=== PATIENT | female | born 1960 | race Caucasian/White ===

== ENCOUNTER 2018-03-12 08:33 | Outpatient (CLI) | payer OTHER ==
[~2018-03-12 08:33] MED LIST: ASCO500C15 PO; CHOL200052 PO; CYAN-19 PO; MAGN400C PO; MULT-1085 PO; OMEG1CAP PO
== END 2018-03-12 23:59 | disposition home or self-care (01) ==
LOC: RAD 08:33
PROVIDERS: ATTEND Student in an Organized Health Care Education/Training Program
DX: E04.2 Nontoxic multinodular goiter (principal); J45.909 Unspecified asthma, uncomplicated; Z87.891 Personal history of nicotine dependence
CPT/HCPCS: 36415; 76536; 84439; 84443; 84479

== ENCOUNTER 2020-04-22 07:11 | Outpatient (CLI) | payer BC ==
[~2020-04-22 07:11] MED LIST changes: -ASCO500C15 PO; +ASCO500C18 PO; -CYAN-19 PO; +CYAN-51 PO
== END 2020-04-22 23:59 | disposition home or self-care (01) ==
LOC: RAD 07:11
PROVIDERS: ATTEND Student in an Organized Health Care Education/Training Program
DX: E04.2 Nontoxic multinodular goiter (principal)
CPT/HCPCS: 76536

== ENCOUNTER 2022-09-13 12:06 | Outpatient (CLI) | payer BC ==
[~2022-09-13 12:06] MED LIST changes: -OMEG1CAP PO; +OMEG1CAP61 PO
== END 2022-09-13 23:59 | disposition home or self-care (01) ==
LOC: RAD 12:06
PROVIDERS: ATTEND Otolaryngology
DX: J32.9 Chronic sinusitis, unspecified (principal)
CPT/HCPCS: 70486

== ENCOUNTER 2023-01-15 07:31 | Outpatient (CLI) | payer BC ==
[~2023-01-15 07:31] MED LIST changes: +CYAN-104 PO; -CYAN-51 PO
[2023-01-15 07:50] LABS: BASOPHILS % (AUTO) 0.9 % (0-1); EOSINOPHILS # (AUTO) 0.1 X10'3 (0-0.9); EOSINOPHILS % (AUTO) 2.2 % (0-6); HEMATOCRIT 39.7 % (35.0-45.0); HEMOGLOBIN 13.4 g/dl (12.0-16.0); LYMPHOCYTES # (AUTO) 2.4 X10'3 (1.1-4.8); LYMPHOCYTES % (AUTO) 52.6 % (21-51); MEAN CORPUSCULAR HEMOGLOBIN 31.4 PG (27.0-31.0); MEAN CORPUSCULAR HGB CONC 33.8 g/dL (33.0-36.5); MEAN CORPUSCULAR VOLUME 92.9 FL (78-98); MEAN PLATELET VOLUME 7.9 FL (7.4-10.4); MONOCYTES # (AUTO) 0.4 X10'3 (0-0.9); NEUTROPHILS # (AUTO) 1.7 X10'3 (1.8-7.7); NEUTROPHILS % (AUTO) 36.3 % (42-75); PLATELET COUNT 265 X10'3 (140-440); RED BLOOD COUNT 4.28 X10'6 (4.20-5.60); RED CELL DISTRIBUTION WIDTH 13.1 % (11.5-14.5); WHITE BLOOD COUNT 4.6 X10'3 (4.5-11.0)
[2023-01-15 08:03] LABS: ALANINE AMINOTRANSFERASE 31 U/L (12-78); ALBUMIN 4.1 G/DL (3.4-5.0); ALBUMIN/GLOBULIN RATIO 1.3 (1.1-1.5); ALKALINE PHOSPHATASE 77 IU/L (46-116); ANION GAP 8 (8-16); ASPARTATE AMINO TRANSFERASE 20 U/L (10-37); BILIRUBIN,TOTAL 0.5 MG/DL (0.1-1.0); BLOOD UREA NITROGEN 21 MG/DL (7-18); CALCIUM 9.4 MG/DL (8.5-10.1); CHLORIDE 103 MMOL/L (99-107); GLUCOSE 168 MG/DL (70-104); POTASSIUM 4.2 MMOL/L (3.5-5.1); SODIUM 136 MMOL/L (135-145); TOTAL CARBON DIOXIDE 25.5 MMOL/L (24-32); TOTAL PROTEIN 7.3 G/DL (6.4-8.2); eGFR 85 ML/MIN
[2023-01-15 08:12] LABS: CHOL/HDL RATIO 2.2 (0.00-4.99); CHOLESTEROL 175 MG/DL (0-200); HDL CHOLESTEROL 78 MG/DL (35-60); LDL CHOLESTEROL 76 MG/DL (50-100); THYROID STIMULATING HORMONE 0.68 ulU/ml (0.34-4.50); TRIGLYCERIDES 34 MG/DL (20-135)
[2023-01-15 10:37] LABS: PLATELET ESTIMATE NORMAL; SMUDGE CELLS FEW; TOTAL CELLS COUNTED 100
== END 2023-01-15 23:59 | disposition home or self-care (01) ==
LOC: LAB 07:31
PROVIDERS: ATTEND Student in an Organized Health Care Education/Training Program
DX: Z00.00 Encounter for general adult medical examination without abnormal findings (principal); E78.00 Pure hypercholesterolemia, unspecified
CPT/HCPCS: 80053; 80061; 84443; 85007; 85025

== ENCOUNTER 2024-12-30 08:45 | Outpatient (CLI) | payer BC ==
--- NOTE | 2024-12-30 10:46 | RADIOLOGY REPORT ---
ULTRASOUND SOFT TISSUE HEAD AND NECK CLINICAL INDICATION: Thyroid nodules TECHNIQUE: Multiple real time sonographic images of the thyroid were obtained. Comparison: ULTRASOUND HEAD NECK on DOS: 04/22/20 FINDINGS: The right thyroid gland measures 4.5 x 1.7 x 1.9 cm. The left thyroid gland measures approximately 4.8 x 1.7 x 1.5 cm. The isthmus measures 0.3 cm. 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 Isoechoic nodule in the left lower pole measures 1.1 cm, TR 3, unchanged. 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 Isoechoic nodule in the left lower pole measures 1.1 cm, TR 3, unchanged. [employer] TI-RADS Categories and Recommendations (2017): TR1: 0 points, Benign, No FNA TR2: 2 points, Not suspicious, No FNA TR3: 3 points, Mildly suspicious, FNA if > or = 2.5 cm, Follow if > or = 1.5 cm TR4: 4-6 points, Moderately Suspicious, FNA if > or = 1.5 cm, Follow if > or = 1.0 cm TR5: 7+ points, Highly Suspicious, FNA if > or = 1.0 cm, Follow if > or = 0.5 cm Follow-up ultrasound guidelines: TR5: yearly for 5 years, if no growth or change in TI-RADS level TR4: at 1, 2, 3 and 5 years, if no growth or change in TI-RADS level TR3: at 1, 3 and 5 years, if no growth or change in TI-RADS level If increased but below threshold for FNA, repeat in one year. Source: A[employer] Thyroid Imaging, Reporting and Data System (TI-RADS): White Paper of the [employer] TI-RADS Committee. Hayder et al., J Am Cathleen Radiol 2017;14:587-595.
== END 2024-12-30 23:59 | disposition home or self-care (01) ==
LOC: RAD 08:45
PROVIDERS: ATTEND Student in an Organized Health Care Education/Training Program
DX: Z01.818 Encounter for other preprocedural examination (principal); E04.1 Nontoxic single thyroid nodule
CPT/HCPCS: 76536